=== PATIENT | female | born 2000 | race Caucasian/White ===

== ENCOUNTER 2022-02-26 11:04 | Outpatient (CLI) | payer BC, SELFPAY ==
[2022-02-26 16:50] LABS: Albumin* 4.5 g/dL (3.3-5.0); Chloride* 106 mmol/L (96-114); Potassium* 4.5 mmol/L (3.6-5.1); Sodium* 138 mmol/L (135-149)
[2022-02-26 16:52] LABS: Bilirubin Total* 0.7 mg/dL (0.1-1.5); Carbon Dioxide* 23 mmol/L (20-32); Creatinine* 0.8 mg/dL (0.5-1.5); Estimated Glomerular Filt Rate 106 ml/min
[2022-02-26 16:53] LABS: Alanine Aminotransferase* 21 U/L (4-35); Alkaline Phosphatase* 35 U/L (40-150); Aspartate Amino Transferase* 29 U/L (12-35); Blood Urea Nitrogen* 15 mg/dL (5-24); Calcium* 9.3 mg/dL (8.4-10.6); Glucose* 87 mg/dL (60-115); Total Protein* 7.4 g/dL (6.0-8.3)
[2022-02-26 17:27] LABS: HIV 1/2/P24 Combo Screen* Negative (Negative)
[2022-02-26 17:35] LABS: Hepatitis C Virus Antibody* Negative (Negative)
[2022-02-28 16:34] LABS: Rheumatoid Factor <10 IU/mL (0-14)
[2022-02-28 22:33] LABS: Anti-Nuclear Ab(ANA)IgG ELISA None Detected (None Detected)
== END 2022-02-26 11:05 | disposition home or self-care (01) ==
PROVIDERS: PCP Physician Assistant Medical; Visit Provider Physician Assistant Medical
DX: R53.83 Other fatigue (principal); B99.9 Unspecified infectious disease
CPT/HCPCS: 80053; 84443; 86039; 86431; 86703; 86803

== ENCOUNTER 2022-10-25 11:04 | Emergency (ER) | payer BC, SELFPAY ==
[2022-10-25 11:12] VITALS: BP 119/78; PULSE 65; RESP 18; TEMP 36.5; O2SAT 98; BMI 23.2
--- NOTE | 2022-10-25 11:27 | CRLHL7_ITS ---
For Patients: As a result of the Century Cures Act, medical imaging exams and procedure reports are released immediately into your electronic medical record. You may view this report before your referring provider. If you have questions, please contact your health care provider. INDICATION: Left shoulder pain Examination: Chest, 2 views. Comparison: None. History: Left shoulder pain. Findings: Heart size and pulmonary vascularity are normal. Lungs are clear. No pneumothorax. No acute osseous finding. Impression: Lungs are clear. Dictated by: Rogers Greenberg MD @ 10/25/2022 11:47:24 (Electronically Signed)
--- NOTE | 2022-10-25 11:28 | ED.GENADULT ---
HPI - General Adult General Date Seen: 10/25/22 Chief complaint: Extremity Pain/Injury, Upper Stated complaint: left shoulder pain Time Seen by Provider: 10/25/22 11:05 Source: patient Mode of arrival: ambulatory Limitations: no limitations History of Present Illness HPI narrative: Patient is a 22-year-old woman who was at the chiropractor on , 2 days ago. She says that he did the manipulation of her left shoulder blade she was lying on her stomach and he pushed down sharply under shoulder blade. She noted that it hurt a little bit at that time, and pain has not improved. She says that he told her that was normal for a to hurt a little bit but should improve over the next couple of days. She says that she is able to move her shoulder without too much difficulty but she has trouble using her left arm to push herself up as, and it also hurts if she takes a deep breath. She is not short of breath. Denies other injuries or complaints, no radicular symptoms. Related Data Home Medications Medication Instructions Recorded Confirmed albuterol sulfate 90 mcg/actuation 2 inhalation PRN 02/26/22 10/22/22 aerosol inhaler fexofenadine-pseudoephedrine ER 1 tab PO DAILY 02/26/22 10/22/22 180 mg-240 mg tablet,ext.release 24 hr Vitamin Gummie PO 10/22/22 10/22/22 Previous Rx's Medication Instructions Recorded sertraline 50 mg tablet 50 mg PO DAILY #90 tabs 10/22/22 Allergies Allergy/AdvReac Type Severity Reaction Status Date / Time No Known Allergies Allergy Unknown Unverified 10/22/22 11:00 Review of Systems Status of ROS: Reports: 6 or more systems reviewed and unremarkable except as noted in History and below [facility] Medical History History of perforation of tympanic membrane ?Z86.69 - Personal history of other diseases of the nervous system and sense organs (ICD-10) Postviral gastroparesis (2014) ?K31.84 - Gastroparesis (ICD-10) Concussion (2016) ?S06.0XAA - Concussion with loss of consciousness status unknown, initial encounter (ICD-10) History of migraine with aura ?Z86.69 - Personal history of other diseases of the nervous system and sense organs (ICD-10) Surgical History Status post hernia repair (2007) ?Z98.890 - Other specified postprocedural states (ICD-10) ?Z87.19 - Personal history of other diseases of the digestive system (ICD-10) Family History Mother Anxiety Social History Smoking Status: Never smoker Do you use any of these nicotine containing products: None Second hand tobacco smoke exposure: No How often do you have a drink containing alcohol: monthly or less How many standard drinks containing alcohol do you have on a typical day: 1 or 2 How often do you have six or more drinks on one occasion: Never AUDIT-C Alcohol total score: 1 Non-prescribed substance use: denies use Little interest or pleasure in doing things: several days Feeling down, depressed, or hopeless: not at all service: No Exam Narrative: Exam Narrative: Vital signs reviewed In general, alert, well-appearing young woman. She looks comfortable, breathing easily. Head: Normocephalic, atraumatic. Neck: Supple, nontender. Heart: Regular rate and rhythm. Lungs: Clear, breath sounds equal. No increased work of breathing. Extremities: Examination of the left shoulder shows it to be normal in appearance, she has tenderness along the trapezius and rhomboid next to the scapula, but does not have any tenderness to the shoulder itself. She has full range of motion. No evidence of deformity, bruising, swelling, or erythema. Distal CMS normal. Skin: Warm dry well perfused. Const: Vital Signs, click to edit/add: Vital Signs - 24 hr 10/25/22 11:12 Temperature 97.7 F Pulse Rate [Pulse Oximeter] 65 Respiratory Rate 18 Blood Pressure [Ri ght Upper Arm] 119/78 Pulse Oximetry 98 Oxygen Delivery Me thod Room Air Documenting provider has reviewed patient's vital signs: yes Course Course Hospital Course: I recommended that we do a chest x-ray just to make sure that she does not have something unusual like a pneumothorax, but I do think her symptoms are more likely due to muscle spasm in her back. She was concerned about shoulder dislocation and I have assured her that the shoulder itself is not dislocated. Chest x-ray by my review is negative for pneumothorax or obvious bony abnormalities. Shoulder looks normal on chest x-ray. Final radiology read is negative. I have discussed all this with her, recommend use of her Thera gun, topical preparations such as Biofreeze or [place] balm, consider massage, use ice as needed. Ibuprofen or Tylenol. Anticipate this will improve with conservative measures but if not she can talk with her chiropractor, primary doctor, PT etcetera. Return for severe worsening pain, fevers, swelling or other new symptoms. Vital Signs Vital signs: Initial Vital Signs Temperature 97.7 F 10/25/22 11:12 Temperature Source Temporal Artery Scan 10/25/22 11:12 Pulse Rate 65 10/25/22 11:12 Pulse Rhythm Regular 10/25/22 11:12 Respiratory Rate 18 10/25/22 11:12 Blood Pressure 119/78 10/25/22 11:12 Blood Pressure Mean 91 10/25/22 11:12 Blood Pressure Position Supine 10/25/22 11:12 Pulse Oximetry 98 10/25/22 11:12 Oxygen Delivery Method Room Air 10/25/22 11:12 Vital Signs Temperature 97.7 F 10/25/22 11:12 Pulse Rate 65 10/25/22 11:12 Respiratory Rate 18 10/25/22 11:12 Blood Pressure 119/78 10/25/22 11:12 Pulse Oximetry 98 10/25/22 11:12 Oxygen Delivery Method Room Air 10/25/22 11:12 Temperature 97.7 F 10/25/22 11:12 Pulse Rate 65 10/25/22 11:12 Respiratory Rate 18 10/25/22 11:12 Blood Pressure 119/78 10/25/22 11:12 Pulse Oximetry 98 10/25/22 11:12 Oxygen Delivery Method Room Air 10/25/22 11:12 Discharge Plan Discharge Clinical Impression: Muscle spasm of back Patient Disposition: Home, Self-Care Condition: Stable Instructions: Muscle Spasm (ED) Additional Instructions: Ibuprofen or Tylenol, topical preparations such as Biofreeze or [place] balm, Theragun, all are helpful for muscle spasm. Anticipate gradual improvement over the next week or so. For severe pain or new symptoms such as fever, swelling etcetera, return to the emergency department. You can follow-up with chiropractic, massage, question normal PT symptoms do not improve with conservative therapies. Prescriptions: No Action fexofenadine-pseudoephedrine 180-240 mg tablet extended release 24 hr 1 tab PO DAILY albuterol sulfate 90 mcg/actuation HFA aerosol inhaler 2 inhalation PRN Vitamin Gummie PO sertraline 50 mg tablet 50 mg PO DAILY Qty: 90 3RF Follow Up/Referrals: Polly Zaragoza PA-C [Primary Care Provider] - Stand Alone Forms: [facility] Info Instructions
== END 2022-10-25 12:17 | disposition home or self-care (01) ==
LOC: ED 12:18
PROVIDERS: Emergency Provider Emergency Medicine; PCP Physician Assistant Medical
DX: M62.830 Muscle spasm of back (principal)
CPT/HCPCS: 71046; 99283; 99284

== ENCOUNTER 2024-02-05 10:30 | Day surgery (SDC) | payer BC, SELFPAY ==
[2024-02-05] VITALS (12 sets, daily range): BP systolic 111–132; BP diastolic 76–94; PULSE 70–85; RESP 14–18; TEMP 36.3–36.6; O2SAT 95–99; BMI 23.6
[2024-02-05] MEDS: SODIUM CHLORIDE 0.9 % (FLUSH) 10 ML SYRINGE IVF (11:17)
[2024-02-05] MEDS: 0.9 % SODIUM CHLORIDE 500 ML 500 ML 100 ML IV (11:19)
[2024-02-05] MEDS: COCAINE HCL 4 % 4 ML SOLUTION NOSTRIL-B (11:35)
[2024-02-05] MEDS: BUPIVACAINE 0.5%/EPINEPHRINE 0.9 MG (30.9 ML) INJECTION (11:35)
[2024-02-05] MEDS: MUPIROCIN 1 GM PACKET 1 APPLIC TOPICAL (11:35)
[2024-02-05] MEDS: AYR SALINE NASAL GEL 1 APPLIC NOSTRIL-B (11:36)
--- NOTE | 2024-02-05 12:02 | P.ENTPROC_ITS ---
Procedure Note Date of procedure: 02/05/24 Procedure: Preop diagnosis deviated septum bilateral inferior turbinate hypertrophy, nasal obstruction, bilateral middle turbinate joyce bullosa, recurrent bilateral maxillary sinusitis, bilateral maxillary sinus accessory os Postop diagnosis same Procedure septoplasty, submucous partial resection inferior turbinates bilateral, endoscopic partial resection bilateral middle turbinate ojyce bullosa, endoscopic bilateral maxillary antrostomies with tissue removal Under general trach anesthesia patient was prepped and draped usual fashion the nose decongested and injected. An incision was made in the septal mucosa anterior to the left area 4 5 spur. Mucosa was elevated on either side of this and the spur was removed piece was straight and returned to intraseptal space. Both middle turbinate joyce bullosa were crushed with the [place] forceps. A stab incision was made anterior to the right inferior turbinate a tunnel created with a [place] dissector. The joyce bone was outfractured and a conservative anterior submucous resection was performed. Coblation was used to cauterize intramurally along the inferior 10%. This was repeated on the left side in identical fashion. Image guidance and a 0 degree endoscope for use remainder of the procedure. The inferior quarter of the uncinate process on the left side was taken down exposing natural os the maxillary sinus. This was occluded by polypoid tissue which was removed in the accessory os was connected to the natural os. This was repeated on the right side in identical fashion with identical findings. In addition on the left and right side polypoid mucosa was removed from the floor and medial wall of the sinus. This was sent as specimen. Merocel packing coated in Bactroban was placed in each side of the nose in the middle meatal region. The patient procedure well was taken recovery in satisfactory condition. Blood loss was less than 10 mL. Surgeon: Davi Seth MD
--- NOTE | 2024-02-05 12:14 | W.ANESCHARGE ---
Anesthesia Charges Start Date/Time Anesthesia Start Date: 02/05/24 Anesthesia Start Time: 11:19 Stop Date/Time Anesthesia Stop Date: 02/05/24 Anesthesia Stop Time: 12:16
--- NOTE | 2024-02-05 12:18 | W.ANESCHARGE ---
Anesthesia Charges Start Date/Time Anesthesia Start Date: 02/05/24 Anesthesia Start Time: 11:19 Stop Date/Time Anesthesia Stop Date: 02/05/24 Anesthesia Stop Time: 12:16
[2024-02-05] MEDS: METOCLOPRAMIDE HCL 5 MG/ML INJ 10 MG IVP (13:39)
[2024-02-05] MEDS: OXYCODONE 5 MG TABLET PO (13:40)
[2024-02-05] MEDS: OXYMETAZOLINE 0.05% NASAL SPRAY 2 SPRAY NOSTRIL-B (14:27)
--- NOTE | 2024-02-05 14:28 | SUR.PHASEII ---
Patient bleeding through drip pads x3 in 30 minutes. Large bloody emesis as well. Dr. Seth notified - instructed to administer Afrin, pack with sterile cotton balls, and report back after 30 minutes.
--- NOTE | 2024-02-05 15:00 | SUR.PHASEII ---
Patient pale, diaphoretic, continues to bleed through drip pads. Dr. Seth updated.
--- NOTE | 2024-02-05 15:25 | SUR.PHASEII ---
Dr. Rodrigez in room to assess, bleeding subsiding, instructed to watch patient for another 45 minutes before discharging.
--- NOTE | 2024-02-05 15:50 | SUR.PHASEII ---
Patient stating she's feeling much better, no longer diaphoretic. Approved for discharge.
== END 2024-02-05 15:57 | disposition home or self-care (01) ==
PROVIDERS: PCP Physician Assistant Medical; Visit Provider Otolaryngology
PROC: (CPT 31231; principal; 2024-02-05 11:30)
DX: J34.2 Deviated nasal septum (principal); J34.3 Hypertrophy of nasal turbinates; J32.0 Chronic maxillary sinusitis; J34.89 Other specified disorders of nose and nasal sinuses; J33.8 Other polyp of sinus
CPT/HCPCS: 30520; 30140; 31240; 31267; 00160; 88305; 88341; 88342; A9270; J1100; J2250; J2405; J2704; J2765; J3010; J7030

== ENCOUNTER 2025-01-05 15:59 | Outpatient (CLI) | payer BC, SELFPAY | END 2025-01-05 16:00 | disposition home or self-care (01) | PROVIDERS: PCP Physician Assistant Medical; Visit Provider Physician Assistant Medical | DX: Z00.00 Encounter for general adult medical examination without abnormal findings (principal) | CPT/HCPCS: 82306; 84443 ==